=== PATIENT | female | born 1980 | race African-American/Black ===

== ENCOUNTER → 2020-09-17 | Day surgery (SDC) | payer OTHER ==
[2020-09-14 11:46] VITALS: BMI 27.3
[~2020-09-17] MED LIST: DEXAMETHASONE SOD PHOSPHATE 4 MG/1 ML VIAL ONE; KETOROLAC TROMETHAMINE 30 MG/1 ML VIAL ONE; LIDOCAINE HCL 2% JELLY (5 ML/TUBE) ONE; LIDOCAINE HCL/PF 2% SDV 5ML VIAL ONE; MIDAZOLAM HCL 2 MG/2 ML SINGLE DOSE VIAL ONE; ONDANSETRON 4 MG/2 ML VIAL IVPUSH PRN; ONDANSETRON 4 MG/2 ML VIAL ONE; PROMETHAZINE HCL 25 MG/1 ML VIAL IVPUSH PRN; PROPOFOL 20 ML ONE; ROPIVACAINE HCL 0.5% 30ML VIAL ONE; ceFAZolin SODIUM 1 GM VIAL ONE; oxyCODONE HCL 5 MG TABLET PO PRN
[2020-09-17 16:25] VITALS: TEMP 98.3
[2020-09-17 16:55] VITALS: BP 137/87; PULSE 90
== END | disposition home or self-care (01) ==
LOC: FASU 11:50
PROVIDERS: ATTEND Orthopaedic Surgery
PROC: 0QSK04Z Reposition Left Fibula with Internal Fixation Device, Open Approach (ICD-10-PCS; principal; 2020-09-17 14:18)
DX: S82.62XA Displaced fracture of lateral malleolus of left fibula, initial encounter for closed fracture (principal); X58.XXXA Exposure to other specified factors, initial encounter; Y93.9 Activity, unspecified; Y92.9 Unspecified place or not applicable
CPT/HCPCS: 73610-TC-LT-FY; 84703; 94760

== ENCOUNTER 2023-03-15 17:11 | Emergency (ER) | payer OTHER ==
[2023-03-15 17:17] VITALS: RESP 18; BMI 31.3
[2023-03-15] MEDS ORDERED: SODIUM CHLORIDE 0.9% 500 ML INFUS.BAG IV ONE (18:02)
[2023-03-15] MEDS ORDERED: ONDANSETRON 4 MG/2 ML VIAL IVPUSH ONE (18:02)
[2023-03-15] MEDS ORDERED: METOCLOPRAMIDE HCL INJECTION 10 MG/2 ML VIAL IVPB ONE (18:26)
[2023-03-15] MEDS ORDERED: METOCLOPRAMIDE HCL INJECTION 10 MG/2 ML VIAL ONE (18:45)
[2023-03-15 19:11] LABS: BASO % 0.5 % (0-2.0); EOS % 0.2 % (0-4.5); HEMOGLOBIN 13.6 GM/dL (10.7-15.3); LYMPH % 8.8 % (8-40); MCH 29.5 pg (25.7-33.7); MCHC 33.9 g/dl (32.0-36.0); MEAN CELL VOLUME 87.1 fl (80-96); MEAN PLT VOLUME 6.4 fl (7.5-11.1); MONO % 12.1 % (3.8-10.2); NEUT % 78.4 % (42.8-82.8); PLATELET COUNT 380 10^3/uL (134-434); RBC 4.59 M/mm3 (3.60-5.2); WHITE BLOOD COUNT 5.8 K/mm3 (4.0-10.0)
[2023-03-15 19:29] LABS: POTASSIUM 4.4 mmol/L (3.5-5.1)
[2023-03-15 19:31] LABS: ALBUMIN 3.8 g/dl (3.4-5.0); BLOOD UREA NITROGEN 4.6 mg/dL (7-18); CALCIUM 9.1 mg/dL (8.5-10.1)
[2023-03-15 19:36] LABS: BILIRUBIN,TOTAL 0.2 mg/dL (0.2-1); TOT PROT 7.6 g/dl (6.4-8.2)
[2023-03-15 19:43] VITALS: PULSE 92
[2023-03-15] MEDS ORDERED: ACETAMINOPHEN 1000 MG/100 ML BAG IVPB ONE (21:35)
[2023-03-15 21:36] VITALS: BP 146/89
[2023-03-15 21:45] LABS: PH,URINE 6.5 (5.0-8.0); URINE APPEARANCE CLEAR; URINE BILIRUBIN NEGATIVE (NEGATIVE); URINE COLOR YELLOW; URINE GLUCOSE (UA) NEGATIVE (NEGATIVE); URINE KETONE NEGATIVE (NEGATIVE); URINE LEUK ESTERASE NEGATIVE (NEGATIVE); URINE NITRITE NEGATIVE (NEGATIVE); URINE PROTEIN NEGATIVE (NEGATIVE); URINE UROBILINOGEN 0.2 mg/dL (0.2-1.0)
[2023-03-15] MEDS ORDERED: ACETAMINOPHEN INJECTION 100 ML IVPB ONE (22:08)
[2023-03-15] MEDS ORDERED: IBUPROFEN 400 MG TABLET (FP) PO ONE ×2 (22:55→23:11)
[2023-03-15 23:21] VITALS: TEMP 98.7
== END 2023-03-15 23:21 | disposition home or self-care (01) ==
LOC: JER 17:11
PROC: 3E033NZ Introduction of Analgesics, Hypnotics, Sedatives into Peripheral Vein, Percutaneous Approach (ICD-10-PCS; principal; 2023-03-15)
PROC: 3E033GC Introduction of Other Therapeutic Substance into Peripheral Vein, Percutaneous Approach (ICD-10-PCS; 2023-03-15)
DX: J09.X2 Influenza due to identified novel influenza A virus with other respiratory manifestations (principal); R10.31 Right lower quadrant pain; R50.9 Fever, unspecified; R05.1 Acute cough; R09.81 Nasal congestion; Z20.822 Contact with and (suspected) exposure to COVID-19
CPT/HCPCS: 0241U-QW; 36415; 74177-TC; 80053; 81003; 83690; 84703; 85025; 87086; 99285-25